=== PATIENT | female | born 1975 | race Two or more races ===

== ENCOUNTER 2017-04-30 21:50 | Outpatient (CLI) | payer MEDICAID ==
[~2017-04-30] VITALS: Ht 149.9 cm; Wt 63.6 kg
[~2017-04-30 21:50] MED LIST: ACET500C5 PO; nausea med
[2017-04-30 22:15] VITALS: Ht 149.9 cm; Wt 63.6 kg
[2017-04-30] MEDS ORDERED: PRENAT PO (22:15)
[2017-04-30] MEDS ORDERED: FER325 PO (22:15)
[2017-04-30 22:16] VITALS: BP 115/73; PULSE 59; RESP 18
[2017-04-30] MEDS ORDERED: LACTATED RINGER'S 1,000 ML IV ONE (23:00)
[2017-04-30 23:01] LABS: ADD UMIC NO; UR ASCORBIC ACID NEGATIVE (NEGATIVE); UR BILIRUBIN (Dip) NEGATIVE (NEGATIVE); UR BLOOD (Dip) NEGATIVE (NEGATIVE); UR CLARITY CLEAR (CLEAR); UR COLOR STRAW (YELLOW); UR GLUCOSE (Dip) NEGATIVE (NEGATIVE); UR KETONES (Dip) NEGATIVE (NEGATIVE); UR LEUKOCYTE ESTERASE (Dip) NEGATIVE Leu/ul (NEGATIVE); UR NITRITE (Dip) NEGATIVE (NEGATIVE); UR SPECIFIC GRAVITY (Dip) 1.005 (1.003-1.030); UR TOTAL PROTEIN (Dip) NEGATIVE (NEGATIVE); UR UROBILINOGEN (Dip) NEGATIVE (NEGATIVE)
--- NOTE | 2017-04-30 23:36 | RADRPT ---
PROCEDURE: Limited OB ultrasound CLINICAL INDICATION: Contractions TECHNIQUE: Limited sonographic evaluation of the gravid uterus was performed to assess the cervica l length COMPARISON: None. FINDINGS: Single live intrauterine with cardiac heart rate of 150 beats per minute is identifi ed. Fetus is in a cephalic presentation. The placenta is anterior Cervix measures 3.4 cm in length and closed. IMPRESSION: Single live intrauterine with a cervical length of 3.4 cm. RPTAT: HMVK .Luis Carlos Marcum MD, MD Date Time Electronically viewed and signed by .Luis Carlos Marcum MD, on 04/30/2017 23:36 .K/
[2017-05-01] MEDS ORDERED: TERBUTALINE 1 MG/ML INJ SC ONE (01:00)
--- NOTE | 2017-05-01 01:23 | PN ---
Triage Information Date/Time Reason for visit: Uterine contractions (since 1300, approx q20 min) Weeks of Gestation 32+5 /Para 7/5 Diabetes: gestational Diabetes management: diet controlled Hypertention: none Additional information Reports normal FM, denies LOF or VB Objective Vital Signs Date Time Temp Pulse Resp B/P Pulse Ox O2 Delivery O2 Flow Rate FiO2 04/30/17 22:16 97.8 59 18 115/73 Room Air Heart Rate: 130's Heart Rate Comments mod anthony, +accels, no decels Contractions: 6-10 Minutes Apart (irregular- at times q3-6) Exam SVE closed/70/-2, unchanged on subsequent exam after 2hrs Results/Medications Results 24 hrs Laboratory Tests Test 04/30/17 21:50 Urine Color STRAW Urine Clarity CLEAR Urine pH 7.0 Urine Specific [place] 1.005 Urine Ketones NEGATIVE Urine Nitrite NEGATIVE Urine Bilirubin NEGATIVE Urine Urobilinogen NEGATIVE Urine Leukocyte Esterase NEGATIVE Urine Hemoglobin NEGATIVE Urine Glucose NEGATIVE Urine Total Protein NEGATIVE Imaging Results PROCEDURE: Limited OB ultrasound CLINICAL INDICATION: Contractions TECHNIQUE: Limited sonographic evaluation of the gravid uterus was performed to assess the cervical length COMPARISON: None. FINDINGS: Single live intrauterine with cardiac heart rate of 150 beats per minute is identified. Fetus is in a cephalic presentation. The placenta is anterior Cervix measures 3.4 cm in length and closed. IMPRESSION: Single live intrauterine with a cervical length of 3.4 cm. Disposition: Discharge Assessment/Plan FWB reassuring TVCL >3cm, thus FFN not indicated Given no e/o PTL, pt given dose of Terbutaline x1 with symptomatic improvement following PO and IVF hydration. One contraction in 45 min following Terbutaline Pt appropriate for d/c home. PTL, PPROM and FKC precautions reviewed Questions answered to patient's satisfaction Pt to f/u with Dr. Pena's clinic as scheduled RAGHAV LAUREANO MD May 01, 2017 01:23
--- NOTE | 2017-05-01 03:09 | TRIAGE ---
OB Triage Datetime Report Generated by CPN: 05/01/2017 03:09 Datetime: 05/01/2017 02:04 Labor Evaluation Frequency: x4 Monitor Mode: External Duration (sec)2399: 50-90 Quality: Mild Pattern: Normal: <= 5 Contractions in 10 Minutes Resting Tone Keddie: Relaxed Heart Rate FHR Baseline Rate: 130 Monitor Mode: External US Variability: Moderate 6-25 bpm Accelerations: 15X15 Decelerations: None Category: Category I Datetime: 05/01/2017 01:40 Pain Assessment Pain Scale: 0 Pain Presence: None/Denies Pain Type: N/A Datetime: 05/01/2017 01:12 Pain Assessment Pain Scale: 3 Pain Presence: Intermittent Pain Type: Cramping Pain Location: Abdomen Datetime: 05/01/2017 00:30 Labor Evaluation Frequency: 3-7 Monitor Mode: External Duration (sec)2399: 50-90 Quality: Mild Pattern: Normal: <= 5 Contractions in 10 Minutes Resting Tone Keddie: Relaxed Heart Rate FHR Baseline Rate: 125 Monitor Mode: External US Variability: Moderate 6-25 bpm Accelerations: 15X15 Decelerations: None Category: Category I Vaginal Exam Dilatation (cms): 0.0 Effacement (%): 50 Station: -2 Exam By: MEli Tungate RN Vaginal Bleeding: None Cervix, Consistency: Soft Cervix, Position: Midposition Datetime: 05/01/2017 00:20 Pain Assessment Pain Scale: 3 Pain Presence: Intermittent Pain Type: Cramping Datetime: 04/30/2017 23:35 Pain Assessment Pain Scale: 8 Pain Presence: Intermittent Pain Type: Cramping Pain Location: Abdomen Datetime: 04/30/2017 23:30 Labor Evaluation Frequency: 2-6 Monitor Mode: External Duration (sec)2399: 70-120 Pattern: Normal: <= 5 Contractions in 10 Minutes Resting Tone Keddie: Relaxed Heart Rate FHR Baseline Rate: 130 Monitor Mode: External US Variability: Moderate 6-25 bpm Accelerations: 15X15 Decelerations: None Category: Category I Datetime: 04/30/2017 22:37 Pain Assessment Pain Scale: 8 Pain Presence: Intermittent Pain Type: Cramping Pain Location: Abdomen Datetime: 04/30/2017 22:30 Labor Evaluation Frequency: 4-7 Monitor Mode: External Duration (sec)2399: 70-120 Pattern: Normal: <= 5 Contractions in 10 Minutes Resting Tone Keddie: Relaxed Heart Rate FHR Baseline Rate: 135 Monitor Mode: External US Variability: Moderate 6-25 bpm Accelerations: 15X15 Decelerations: None Category: Category I Datetime: 04/30/2017 22:24 Vaginal Exam Dilatation (cms): 0.0 Effacement (%): 70 Station: -2 Exam By: Arpita Mcghee RN Vaginal Bleeding: None Cervix, Consistency: Soft Cervix, Position: Anterior Presentation 'A': Unable to Assess Datetime: 04/30/2017 22:05 Time of Arrival: 04/30/2017 21:09 EGA: 32.5 Arrived By: Wheelchair Arrived From: Home Chief Complaint: Abdominal pain every 20 minutes since 1300 Movement: Present Contractions: Irregular Time Contractions Began: 04/30/2017 13:00 Contractions: Every 20 minutes Rupture of Membranes: Denies Vaginal Bleeding: None Vaginal Discharge: Denies Recent Sexual Intercouse: Denies Abdominal Trauma: Not Applicable Time Provider Notified: 04/30/2017 22:10 Provider Notified: Dr. Gregg Initial Plan: CEFM Datetime: 04/30/2017 21:59 Stage of : OB Triage Assessment Type: Triage Maternal Assessment Level of Consciousness: Fully Conscious DTR's/Clonus: DTRs 2+; No Clonus Headache: Denies Blurred Vision: No Respiratory Effort: Unlabored; Regular Rhythm; Equal Expansion Breath Sounds, Left: Clear and Equal Breath Sounds, Right: Clear and Equal Nausea/Vomiting: Denies RUQ Epigastric Pain: Denies Lower Extremities Edema: None Degree: None Upper Extremities Edema: None Degree: None Facial Edema: None Temperature Route: Oral Fall Risk Assessment History of Falling: (0) No Secondary Diagnosis: (0) No Ambulatory Aid: (0) Bedrest/Nurse Assist IV Therapy: (0) No Gait: (0) Normal/Bedrest/Immobile Mental Status: (0) Oriented to Own Ability Fall Score: 0 Fall Risk Score Definition: No Risk: No action required Pain Assessment Pain Scale: 8 Pain Presence: Intermittent Pain Type: Cramping Pain Location: Abdomen
== END 2017-05-01 02:15 | disposition home or self-care (01) ==
LOC: OBT 21:50 → L-D 21:52 → OBT 05-01 02:15
PROVIDERS: ATTEND Obstetrics & Gynecology
DX: O60.03 Preterm labor without delivery, third trimester (principal); Z3A.32 32 weeks gestation of pregnancy
CPT/HCPCS: 76817; 81003; 96360; 96361; 96372; G0463; J3105; J7120

== ENCOUNTER 2017-06-10 21:52 | Inpatient (IN) | payer MEDICAID ==
[~2017-06-10] VITALS: Ht 152.4 cm; Wt 68.8 kg
[~2017-06-10 21:52] MED LIST changes: +FER325 PO; +PRENAT PO; -nausea med
[2017-06-10 22:25] VITALS: Ht 152.4 cm; Wt 68.8 kg
[2017-06-11] MEDS ORDERED: LACTATED RINGER'S 1,000 ML IV PRN (01:30)
[2017-06-11] MEDS ORDERED: OXYTOCIN 30 UNITS/LR 500 ML IV PRN ×2 (01:30→16:00)
[2017-06-11] MEDS ORDERED: LIDOCAINE 1% (MPF) 30 ML INJ INJ PRN (01:30)
[2017-06-11] MEDS ORDERED: BUTORPHANOL 2 MG INJ IV PRN (01:30)
[2017-06-11] MEDS ORDERED: METHYLERGONOVINE 0.2 MG INJ IM PRN ×2 (01:30→16:00)
[2017-06-11] MEDS ORDERED: MISOPROSTOL 200 MCG TAB PR PRN ×2 (01:30→16:00)
[2017-06-11] MEDS ORDERED: OXYTOCIN 30 UNITS/LR 500 ML IV SCH ×2 (01:30)
[2017-06-11] MEDS ORDERED: CARBOPROST 250 MCG INJ IM PRN ×2 (01:30→16:00)
[2017-06-11] MEDS ORDERED: IBUPROFEN 600 MG TAB PO PRN (01:30)
[2017-06-11] MEDS: LACTATED RINGER'S 1,000 ML IV SCH ×2 (01:44→11:38)
--- NOTE | 2017-06-11 08:26 | HP ---
Date/Time of Note Date/Time of Note DATE: 06/11/17 TIME: 08:16 OB - History Hx of Present Free Text/Dictation 41 years old female T5 PT 0 SAB 1 IAB 0 L5 EDC June 20, 2017, admitted @38 weeks and 5 days in active labor, pelvic examination on admission, cervix 6 cm dilated 90% effaced vertex at -2 station ,contractions 2 to 5 minutes, heart rate category 1, patient transferred from triage to L&D for delivery. Chief Complaint: Labor contractions and pain Estimated Due Date: Jun 20, 2017 : 7 Para: 5 Spontaneous : 1 Care: Good Care Ultrasounds: Normal mid trimester US Obstetrical Complications: None Medical Complications: None Past Family/Social History * Past Medical, Surgical, Family and Obstetric Histories reviewed from chart. Rubella: immune RPR/VDRL: Negative GBS Status: Negative HBsAG: Negative OB Admission Exam Physical Exam HEENT: WNL Heart: Rhythm Normal Lungs: Clear, Equal Abdomen: WNL Extremities: Normal Cervical Dilatation: 6cm Effacement: Other (90%) Station: -1 Membranes: Ruptured Amniotic Fluid: Clear Heart Rate: 130's Accelerations: Accelerations Present Decelerations: No Decelerations Varibility: Moderate Contractions on Admission: < 5 Minutes Apart Intensity: Moderate Last 72 hours Lab Results CBC & BMP 06/10/17 23:00 JAHAIRA PETERSON MD Jun 11, 2017 08:26
--- NOTE | 2017-06-11 14:27 | LDN ---
Date/Time of Note Date/Time of Note DATE: 06/11/17 TIME: 14:04 Delivery Summary Normal spontaneous vaginal delivery of a viable baby girl from OA position, shoulders delivered without any difficulty rest of the baby's body followed cord clamped after stopped pulsation placenta spontaneous expulsion inspected complete, vaginal perineal inspection no laceration, estimated blood loss 250 cc Weeks of Gestation 38 weeks 5 day Meconium: none Episiotomy: No Laceration repair: None Anesthesia type: None Sponge & Needle done & correct: Yes All needle counts correct: Yes Any foreign bodies felt in the: No Problems: Infant Delivery Information Sex Infant Sex: female Apgars 1 Minute: 9 5 Minute: 9 Suctioning Nose & mouth suctioned at clay: Yes Delee suction performed: No Umbilical Cord Umbilical cord with: 3 Vessels Cord presentations: nuchal cord Cord Blood was obtained: Yes JAHAIRA PETERSON MD Jun 11, 2017 14:14
[2017-06-11 15:30] VITALS: BP 135/70; PULSE 67; RESP 17
[2017-06-11] MEDS ORDERED: ONDANSETRON 4 MG INJ IV PRN (16:00)
[2017-06-11] MEDS ORDERED: ACETAMINOPHEN 325 MG TAB PO PRN (16:00)
[2017-06-11] MEDS ORDERED: DIBUCAINE 1% 30 GM OINT TOP PRN (16:00)
[2017-06-11] MEDS ORDERED: OXYCODONE/ASPIRIN (4.88/325) TAB PO PRN ×2 (16:00)
[2017-06-11] MEDS ORDERED: BENZOCAINE 20% 56 ML SPRAY TOP PRN (16:00)
[2017-06-11] MEDS ORDERED: HYDROCODONE/APAP (5/325) TAB PO PRN ×2 (16:00)
[2017-06-11] MEDS ORDERED: WITCH HAZEL/GLYCERIN PAD PR PRN (16:00)
[2017-06-11] MEDS ORDERED: LANOLIN 7 GM TUBE TOP PRN (16:00)
[2017-06-11] MEDS: OXYTOCIN 30 UNITS/LR 500 ML IV SCH ×2 (17:59→19:48)
[2017-06-11] MEDS: IBUPROFEN 600 MG TAB PO SCH (18:00)
[2017-06-11 19:30] VITALS: BP 138/77; PULSE 66; RESP 20
[2017-06-11] MEDS: SENNA/DOCUSATE NA (8.6MG/50MG) TAB PO SCH (22:20)
[2017-06-12] MEDS: IBUPROFEN 600 MG TAB PO SCH ×4 (01:11→17:30)
[2017-06-12 04:00] VITALS: BP 137/85; PULSE 63; RESP 20
[2017-06-12 08:00] VITALS: BP 125/72; PULSE 65; RESP 17
[2017-06-12] MEDS: SENNA/DOCUSATE NA (8.6MG/50MG) TAB PO SCH ×2 (08:25→21:15)
[2017-06-12 12:00] VITALS: BP 121/80; PULSE 72; RESP 16
--- NOTE | 2017-06-12 13:15 | QN ---
Documentation Comment day 1 Afebrile Vital signs are stable Abdomen soft, uterus firm, lochia normal, extremity normal, ambulation encouraged JAHAIRA PETERSON MD Jun 12, 2017 13:15
--- NOTE | 2017-06-12 13:15 | QN ---
Documentation Comment day 1 Afebrile Vital signs are stable Abdomen soft, uterus firm, lochia normal, extremity normal, ambulation encouraged JAHAIRA PETERSON MD Jun 12, 2017 13:15
--- NOTE | 2017-06-12 13:15 | QN ---
Documentation Comment day 1 Afebrile Vital signs are stable Abdomen soft, uterus firm, lochia normal, extremity normal, ambulation encouraged JAHAIRA PETERSON MD Jun 12, 2017 13:15
[2017-06-12 16:00] VITALS: BP 109/63; PULSE 64; RESP 17
[2017-06-12 19:35] VITALS: BP 135/61; PULSE 65; RESP 18
[2017-06-13] MEDS: IBUPROFEN 600 MG TAB PO SCH ×3 (00:18→12:56)
[2017-06-13 04:15] VITALS: BP 115/69; PULSE 62; RESP 18
[2017-06-13 08:20] VITALS: BP 122/71; PULSE 66; RESP 19
[2017-06-13] MEDS ORDERED: MEASLES,MUMPS,RUBELLA VACCINE INJ SC* ONE (09:00)
[2017-06-13] MEDS: SENNA/DOCUSATE NA (8.6MG/50MG) TAB PO SCH (09:45)
--- NOTE | 2017-06-13 10:15 | PD.PPDC ---
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
--- NOTE | 2017-06-13 10:15 | PD.PPDC ---
ALTERATION TAILOR Discharge Instruction Condition Patient Condition: Good Diet Diet: Resume Regular Diet Activity/Restrictions Activity: Normal Activity May Shower Follow-up Follow-up with Physician: 2, Week/Weeks Provider Information: instructions given recommended to make appointment to be seen in clinic in 2 weeks Return to clinic for GEEK SQUAD AGENT Instructions: Fever greater than 101 Chills Worsening abdominal pain Excessive Vaginal Bleeding More than 2 pads per hour Unable to tolerate diet OB Instructions: Breast Tenderness Depression Blurried Vision Headache JAHAIRA PETERSON MD Jun 13, 2017 10:15
--- NOTE | 2017-06-13 10:15 | PD.PPDC ---
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
--- NOTE | 2017-06-13 10:18 | DS ---
Date/Time of Note Date/Time of Note DATE: 06/13/17 TIME: 10:16 Discharge Summary Admission/Discharge Info Admit Date/Time Jun 11, 2017 at 01:30 Discharge Date/Time June 13, 2017 at 11 AM Discharge Diagnosis Post normal vaginal delivery day 2 Procedures Normal vaginal delivery Hx of Present Illness Term in labor Hospital Course Satisfactory uneventful Home Meds Active Scripts Acetaminophen* (Tylophen*) 500 Mg Capsule, 1 CAP PO Q6H Y for PAIN AND OR ELEVATED TEMP, #20 CAP Prov:CHANTALE TUCKER PERSONAL LINES APPRAISER 04/25/16 Reported Medications Ferrous Sulfate* (Ferrous Sulfate*) 325 Mg Tabec, 325 MG PO DAILY, TAB 04/30/17 Multivit/Min/Fol Ac/Iron/Pren* ( S*) 1 Tab Tab, 1 TAB PO DAILY, TAB 04/30/17 Follow-up Plan instruction given recommended to make appointment to be seen at the clinic in 2 weeks Primary Care Provider Care Physician No Primary Time spent on discharge: < 30 minutes JAHAIRA PETERSON MD Jun 13, 2017 10:18
--- NOTE | 2017-06-13 10:18 | DS ---
Date/Time of Note Date/Time of Note DATE: 06/13/17 TIME: 10:16 Discharge Summary Admission/Discharge Info Admit Date/Time Jun 11, 2017 at 01:30 Discharge Date/Time June 13, 2017 at 11 AM Discharge Diagnosis Post normal vaginal delivery day 2 Procedures Normal vaginal delivery Hx of Present Illness Term in labor Hospital Course Satisfactory uneventful Home Meds Active Scripts Acetaminophen* (Tylophen*) 500 Mg Capsule, 1 CAP PO Q6H Y for PAIN AND OR ELEVATED TEMP, #20 CAP Prov:CHANTALE TUCKER MAIL SERVICE COORDINATOR 04/25/16 Reported Medications Ferrous Sulfate* (Ferrous Sulfate*) 325 Mg Tabec, 325 MG PO DAILY, TAB 04/30/17 Multivit/Min/Fol Ac/Iron/Pren* ( S*) 1 Tab Tab, 1 TAB PO DAILY, TAB 04/30/17 Follow-up Plan instruction given recommended to make appointment to be seen at the clinic in 2 weeks Primary Care Provider Care Physician No Primary Time spent on discharge: < 30 minutes JAHAIRA PETERSON MD Jun 13, 2017 10:18
--- NOTE | 2017-06-13 10:18 | DS ---
Date/Time of Note Date/Time of Note DATE: 06/13/17 TIME: 10:16 Discharge Summary Admission/Discharge Info Admit Date/Time Jun 11, 2017 at 01:30 Discharge Date/Time June 13, 2017 at 11 AM Discharge Diagnosis Post normal vaginal delivery day 2 Procedures Normal vaginal delivery Hx of Present Illness Term in labor Hospital Course Satisfactory uneventful Home Meds Active Scripts Acetaminophen* (Tylophen*) 500 Mg Capsule, 1 CAP PO Q6H Y for PAIN AND OR ELEVATED TEMP, #20 CAP Prov:CHANTALE TUCKER INTERNAL SALES ENGINEER 04/25/16 Reported Medications Ferrous Sulfate* (Ferrous Sulfate*) 325 Mg Tabec, 325 MG PO DAILY, TAB 04/30/17 Multivit/Min/Fol Ac/Iron/Pren* ( S*) 1 Tab Tab, 1 TAB PO DAILY, TAB 04/30/17 Follow-up Plan instruction given recommended to make appointment to be seen at the clinic in 2 weeks Primary Care Provider Care Physician No Primary Time spent on discharge: < 30 minutes JAHAIRA PETERSON MD Jun 13, 2017 10:18
== END 2017-06-13 14:05 | disposition home or self-care (01) | DRG 775 ==
LOC: OBT 21:52 → L-D 21:54 → OBT 06-11 01:30 → L-D 06-11 01:30 → PP1 06-11 15:47
PROVIDERS: ADMIT Obstetrics & Gynecology; ATTEND Obstetrics & Gynecology
PROC: 10E0XZZ Delivery of Products of Conception, External Approach (ICD-10-PCS; principal; 2017-06-11)
DX: O80 Encounter for full-term uncomplicated delivery (principal); Z37.0 Single live birth; Z3A.38 38 weeks gestation of pregnancy
CPT/HCPCS: 85025; 85610; 85730; 86592; 86900; 86901; G0463; J2590; J7120

== ENCOUNTER 2018-10-15 14:00 | Emergency (ER) | payer MEDICAID ==
[~2018-10-15] VITALS: Wt 69.4 kg
[2018-10-15] MEDS ORDERED: LIDOCAINE/MYLANTA 40 ML BTL PO STA (15:54)
[2018-10-15] MEDS ORDERED: ONDANSETRON (ODT) 4 MG TAB ODT STA (15:54)
[2018-10-15] MEDS ORDERED: BELLADONNA/PHENOBARBITAL TAB PO STA (15:54)
[2018-10-15] MEDS ORDERED: KETOROLAC 30 MG INJ IM STA (15:54)
--- NOTE | 2018-10-15 16:09 | ERD ---
ER Documentation Chief Complaint Chief Complaint since Fri: [place], [place], generalized pains. no diarrhea. HPI 42-year-old female with no significant past medical or surgical history 5-6 day complaint of persistent frontal headache, intermittent nausea and NB/BB vomiting, epigastric abdominal pain, along with general body aches. Took Tylenol which helped with symptoms. She reports subjective fevers at home but temperature normal here. She otherwise denies shortness of breath, cough, chest pain, radiation of abdominal pain, urinary symptoms. No reported sick contacts or recent travel. Denies recent antibiotic use. Reports she follows up with PMD regularly and all vaccinations up-to-date. Has not gotten the flu shot. Last PE was last month on the . Reports normal menses. ROS All systems reviewed and are negative except as per history of present illness. Medications Home Meds Active Scripts Ibuprofen* (Motrin*) 600 Mg Tab, 600 MG PO Q6, #20 TAB Prov:VARGAS POLANCO PA-C 10/15/18 Magaldrate/Simethicone* (Mylanta*) 355 Ml Susp, 30 ML PO QID PRN for GASTROINTESTINAL UPSET, #1 BOTTLE Prov:VARGAS POLANCO PA-C 10/15/18 Tramadol HCl (Tramadol HCl) 50 Mg Tablet, 50 MG PO Q6 PRN for PAIN, #7 TAB Prov:VARGAS POLANCO-C 10/15/18 Ondansetron (Ondansetron Odt) 8 Mg Tab.rapdis, 8 MG PO Q6H PRN for NAUSEA AND/OR VOMITING, #10 TAB Prov:VARGAS POLANCO PA-C 10/15/18 Acetaminophen* (Tylophen*) 500 Mg Capsule, 1 CAP PO Q6H PRN for PAIN AND OR ELEVATED TEMP, #20 CAP Prov:CHANTALE UTCKER ROOM SERVICE ATTENDANT 04/25/16 Reported Medications Ferrous Sulfate* (Ferrous Sulfate*) 325 Mg Tabec, 325 MG PO DAILY, TAB 04/30/17 Multivit/Min/Fol Ac/Iron/Pren* ( S*) 1 Tab Tab, 1 TAB PO DAILY, TAB 04/30/17 Allergies Allergies: Coded Allergies: No Known Allergy (Unverified , 10/15/18) PMhx/Soc History of Surgery: No Anesthesia Reaction: No Hx Neurological Disorder: No Hx Respiratory Disorders: No Hx Cardiac Disorders: No Hx Psychiatric Problems: No Hx Miscellaneous Medical Probl: No Hx Alcohol Use: No Hx Substance Use: No Hx Tobacco Use: No FmHx Family History: No diabetes, No coronary disease, No other Physical Exam Vitals Physical Exam I have reviewed the triage vital signs. Const: Well nourished, well developed, appears stated age Eyes: PERRL, no conjunctival injection HENT: NCAT, Neck supple without meningismus CV: RRR, Warm, well-perfused extremities RESP: CTAB, Unlabored respiratory effort GI: soft, mild tendernes to deep palpation to epigastrium, non-distended, no masses, no rebound or guarding MSK: No gross deformities appreciated Skin: Warm, dry. No rashes Neuro: Alert,Sensation and motor function of extremities grossly intact. Results 24 hrs Laboratory Tests Test 10/15/18 16:25 POC Beta HCG, Qualitative NEGATIVE Current Medications Medications Dose Sig/Ramon Start Time Status Last (Trade) Ordered Route PRN Stop Time Admin Dose Reason Admin Ketorolac 30 mg ONCE STAT 10/15/18 DC 10/15/18 Tromethamine IM 15:54 10/15/18 16:29 (Toradol) 15:59 Ondansetron 8 mg ONCE STAT 10/15/18 DC 10/15/18 HCl (Zofran ODT 15:54 10/15/18 16:25 Odt) 15:59 40 ml ONCE STAT 10/15/18 DC 10/15/18 Miscellaneous PO 15:54 10/15/18 16:25 Medication 15:59 (Gi Cocktail (2)) Belladonna/ 2 tab ONCE STAT 10/15/18 DC 10/15/18 Phenobarbital PO 15:54 10/15/18 16:25 () 15:59 Procedures/MDM ED Course; GI cocktail Zofran Toradol for pain The patient's clinical presentation is very consistent with an acute viral syndrome. No evidence of pneumonia. The patient is well-appearing without respiratory distress. Normal oxygen saturation. X-ray imaging not indicated. No indication for Tamiflu given length of symptoms. The patient does not exhibit any clinical signs or symptoms concerning for serious bacterial infection or systemic illness. Based on history and clinical exam findings the patient does not appear to have evidence of pneumonia, strep pharyngitis, urinary tract infection, bacteremia, sepsis, or meningitis. For these reasons I do not believe it is necessary to obtain laboratory testing or diagnostic imaging. I believe it would be appropriate for symptom control, and close outpatient primary care follow-up. We discussed follow up with the patient's primary care doctor within 24 to 48 hours as needed. We also discussed return to the emergency room for worsening symptoms or worsening condition. Departure Diagnosis: Primary Impression: Viral syndrome Condition: Stable Patient Instructions: Nausea and Vomiting-Adult, Uri, Viral, No Abx (Adult) Additional Instructions: If symptoms do not abide or become worsened then call your PMD or proceed to nearest ED or [facility] VARGAS POLANCO PA-C Oct 15, 2018 16:09 LIDIA CAMERON DO Oct 21, 2018 20:02
[2018-10-15] MEDS ORDERED: IBUP-1542 PO (16:14)
[2018-10-15] MEDS ORDERED: TRAM50TA2 PO (16:14)
[2018-10-15] MEDS ORDERED: MAG-19 PO (16:14)
[2018-10-15] MEDS ORDERED: ONDA8TAB14 PO (16:14)
[2018-10-15 16:23] VITALS: BP 113/75; PULSE 80; RESP 16
== END 2018-10-15 16:25 | disposition home or self-care (01) ==
LOC: FTE 14:00
DX: B34.9 Viral infection, unspecified (principal)
CPT/HCPCS: 81025; J1885; Z7610; 96372